=== PATIENT | male | born 1965 | race Caucasian/White ===

== ENCOUNTER 2019-01-24 10:59 | Day surgery (SDC) | payer MEDICARE ==
[~2019-01-24 10:59] MED LIST: Lactated Ringers 1,000 ML IV SCH
[2019-01-24] MEDS ORDERED: Propofol 200 MG/20 ML SDV ONE ×2 (13:15→13:48)
[2019-01-24] MEDS ORDERED: fentaNYL 100 MCG/2 ML SDV ONE (13:15)
--- NOTE | 2019-01-24 15:01 | OR ---
PREOPERATIVE DIAGNOSIS: Positive FIT stool card. The patient denies any family history of colon cancer or colon polyps. This is his first colonoscopy. POSTOPERATIVE DIAGNOSES: 1. A 5 mm polyp at 75 cm, removed with hot snare. 2. Otherwise, normal colon. PROCEDURE: Colonoscopy with polypectomy x1 using hot snare. SURGEON: Oscar Green M.D. ANESTHESIA: Monitored anesthesia care. BOWEL PREP: Fair. Particulate stool with corn present caused plugging of the scope several times. DESCRIPTION OF PROCEDURE: Jony is a 53-year-old male who was brought to the endoscopy suite after discussing risks and benefits of the procedure. Informed consent was obtained for conscious sedation and colonoscopy with or without biopsy and/or polypectomy. We also discussed possibility of missed lesions. Pre-procedure exam was unremarkable. IV, oxygen, and monitors were placed. The patient was placed in the left lateral decubitus position. Sedation was administered and a digital rectal exam was performed and unremarkable. Colonoscope was passed into the rectum and slowly advanced all the way to the cecum. Cecum was viewed and photographed. The colonoscope was slowly withdrawn and the mucosa was closed observed in a direct circumferential manner. The ascending colon was unremarkable. The transverse colon revealed a 5 mm polyp at 75 cm, removed with hot snare. Descending colon unremarkable. Sigmoid colon unremarkable. Retroflexion was performed. Rectal mucosa unremarkable. Scope was removed. The patient tolerated the procedure well. The patient was monitored until that baseline status. Discharge instructions were reviewed and the patient was discharged in good condition. COMPLICATIONS: None. TOTAL TIME: 28 minutes. ESTIMATED BLOOD LOSS: Less than 1 mL. RECOMMENDATIONS/FOLLOW-UP: We will await results of path report to determine ideal followup interval. I would like to kindly thank Von Chen for this referral. DMB: 01/24/2019 14:22:02 MODL: 01/24/2019 14:38:27 /[id number]
== END 2019-01-24 15:20 | disposition home or self-care (01) ==
LOC: VM.SDS 10:59
PROVIDERS: ATTEND Family Medicine
DX: D12.4 Benign neoplasm of descending colon (principal); F41.9 Anxiety disorder, unspecified; F32.9 Major depressive disorder, single episode, unspecified; F12.11 Cannabis abuse, in remission; E66.9 Obesity, unspecified; Z68.33 Body mass index [BMI] 33.0-33.9, adult; Z88.6 Allergy status to analgesic agent; Z98.84 Bariatric surgery status; Z87.891 Personal history of nicotine dependence; Z79.899 Other long term (current) drug therapy
CPT/HCPCS: 45385; J2704; J3010; J7120

== ENCOUNTER 2020-06-18 07:11 | Day surgery (SDC) | payer MEDICARE, MEDICAID ==
[~2020-06-18 07:11] MED LIST changes: +Sodium Chloride 0.9% 10 ML Syringe FLUSH PRN
[2020-06-18] MEDS ORDERED: fentaNYL 100 MCG/2 ML SDV ONE (07:59)
[2020-06-18] MEDS ORDERED: Propofol 200 MG/20 ML SDV ONE ×2 (07:59→09:33)
--- NOTE | 2020-06-19 08:40 | OR ---
DATE OF SURGERY: 06/18/2020. REFERRING PROVIDER: Lyudmila Pittman MD PRE-OPERATIVE DIAGNOSES: Rectal bleeding over the past week. The patient noting streaks of blood on the stool. Polyps are within the stool as well. The patient's last colonoscopy was 01/2019 and revealed 5 mm adenoma in the transverse colon. There is no family history of colon cancer. POST-OPERATIVE DIAGNOSES: 1. Two polyps removed today, but I doubt either 1 of these were the source of bleeding. a. 3 mm slightly inflamed polyp at the entry to the cecum. This did have mild bleeding after removal. b. 3 mm x 10 mm linear polyp like tissue on a haustral fold at 40 cm from the anal verge. This was removed using hot snare x2 passes. This was a subtle appearing polyp like tissue and may actually return normal. 2. Normal-appearing distal ileum. PROCEDURE: Colonoscopy with polypectomy x2 (1 using cold forceps and 1 using hot snare x2 passes). SURGEON: Oscar Green M.D. ANESTHESIA: Monitored anesthesia care. BOWEL PREP: Fair and did require moderate amount of irrigation and suctioning. Jony is a 55-year-old male who was brought to the endoscopy suite after discussing risks and benefits of the procedure. Informed consent was obtained for conscious sedation and colonoscopy with or without biopsy and/or polypectomy. We also discussed possibility of missed lesions. Pre-procedure exam was unremarkable. IV, oxygen, and monitors were placed. The patient was placed in the left lateral decubitus position. Sedation was administered and a digital rectal exam was performed and unremarkable. I did not notice any external hemorrhoids nor any anal fissures. Colonoscope was passed into the rectum and slowly advanced all the way to the cecum. Cecum was viewed and photographed. Ileocecal valve was intubated and distal ileum was normal in appearance. The colonoscope was slowly withdrawn and the mucosa was closed observed in a direct circumferential manner. The ascending colon revealed 3 mm polyp at the entry to the cecum. This did appear to be mildly irritated or inflamed and did bleed a little bit after removal with cold forceps. The transverse colon was unremarkable. The descending colon revealed polypoid-like tissue on a haustral fold at 40 cm from the anal verge. This was about 3 mm x 10 mm in dimension and was subtle in appearance. This was removed using hot snare x2 passes. The sigmoid colon was unremarkable. Retroflexion was performed and rectal mucosa was unremarkable. Scope was removed. The patient tolerated the procedure well. The patient was monitored until that baseline status. Discharge instructions were reviewed and the patient was discharged in good condition. COMPLICATIONS: None. TOTAL TIME: 29 minutes. ESTIMATED BLOOD LOSS: About 1 mL. RECOMMENDATIONS/FOLLOW-UP: We will await results of path report to determine ideal followup interval. If the patient continues to have ongoing rectal bleeding, may consider additional imaging of the small bowel with either CT scan or PillCam study. May also benefit from upper endoscopy evaluation. These could be coordinated through Gastroenterology as well. I would like to kindly thank Dr. Pittman for this referral. DMB: 06/18/2020 11:35:09 MODL: 06/18/2020 14:03:25 /[id number]
== END 2020-06-18 11:25 | disposition home or self-care (01) ==
LOC: VM.SDS 07:11
PROVIDERS: ATTEND Family Medicine
DX: D12.0 Benign neoplasm of cecum (principal); F41.9 Anxiety disorder, unspecified; E66.9 Obesity, unspecified; Z98.890 Other specified postprocedural states; Z87.891 Personal history of nicotine dependence; Z01.812 Encounter for preprocedural laboratory examination; Z20.828 Contact with and (suspected) exposure to other viral communicable diseases; Z79.899 Other long term (current) drug therapy; Z88.8 Allergy status to other drugs, medicaments and biological substances; Z68.29 Body mass index [BMI] 29.0-29.9, adult
CPT/HCPCS: 00811; 88305; J2704; J3010; J7120; U0002

== ENCOUNTER 2022-09-05 10:45 | Inpatient (IN) | payer MEDICARE, MEDICAID ==
[2022-09-05] MEDS ORDERED: Piperacillin/Tazobactam 3.375 GM in Sodium Chloride 0.9% 100 ML IV ONE (11:46)
[2022-09-05] MEDS ORDERED: VANCOmycin 2 GM/400 ML 2 GM in Premix Bag 1 BAG IV ONE (11:49)
[2022-09-05] MEDS ORDERED: Cefepime 2 GM in Sodium Chloride 0.9% 100 ML IV ONE (12:01)
[2022-09-05 12:22] LABS: PTT,PARTIAL THROMBOPLSTIN TIME 26.7 SEC (20.5-30.9)
[2022-09-05 12:24] LABS: ANION GAP 12.1 mmol/L (5-15)
[2022-09-05] MEDS ORDERED: Naloxone 0.4 MG/ML SDV IM PRN (19:01)
[2022-09-05] MEDS ORDERED: Magnesium Hydroxide 400 MG/5 ML Susp 30 ML Cup PO PRN (19:22)
[2022-09-05] MEDS: HYDROmorphone 1 MG/ML Syringe IVPUSH PRN (19:58)
[2022-09-05] MEDS: busPIRone 15 MG Tab PO SCH (20:12)
[2022-09-05] MEDS: Gabapentin 300 MG Cap PO SCH (20:14)
[2022-09-05] MEDS: Ferrous Sulfate 325 MG Tab PO SCH (20:15)
[2022-09-05] MEDS: Melatonin 3 MG Tab PO SCH (20:15)
[2022-09-05] MEDS ORDERED: Amitriptyline 25 MG Tab PO ONE (22:30)
[2022-09-05] MEDS: HYDROmorphone 2 MG Tab PO SCH ×2 (23:10→23:18)
[2022-09-06] MEDS ORDERED: Cefepime 2 GM in Sodium Chloride 0.9% 100 ML IV SCH (01:00)
[2022-09-06] MEDS: HYDROmorphone 2 MG Tab PO SCH ×6 (05:58→20:47)
[2022-09-06] MEDS: Gabapentin 300 MG Cap PO SCH ×2 (08:20→20:52)
[2022-09-06] MEDS: Ferrous Sulfate 325 MG Tab PO SCH ×2 (08:20→20:49)
[2022-09-06] MEDS: Calcium Citrate/Vitamin D3 315 MG-250 Unit Tab PO SCH (08:20)
[2022-09-06] MEDS: QUEtiapine 100 MG Tab PO SCH (08:21)
[2022-09-06] MEDS: Polyethylene Glycol 3350 Powder 17 GM Packet PO SCH (08:22)
[2022-09-06] MEDS ORDERED: Calcium Carbonate 750 MG Tab.Chew PO PRN (08:37)
[2022-09-06] MEDS: VANCOmycin 1.5 GM/300 ML 300 ML IV SCH ×2 (09:25→20:42)
[2022-09-06] MEDS: busPIRone 15 MG Tab PO SCH ×2 (09:36→20:49)
[2022-09-06] MEDS ORDERED: HYDROmorphone 2 MG Tab PO SCH (10:00)
[2022-09-06] MEDS: Cefepime 2 GM in Sodium Chloride 0.9% 100 ML IV SCH ×2 (11:09→18:30)
[2022-09-06] MEDS: HYDROmorphone 1 MG/ML Syringe IVPUSH PRN (15:40)
[2022-09-06] MEDS: Enoxaparin 40 MG/0.4 ML Syringe SUBCUT SCH (17:28)
[2022-09-06] MEDS: Melatonin 3 MG Tab PO SCH (20:49)
[2022-09-06] MEDS: Amitriptyline 25 MG Tab PO SCH (20:51)
[2022-09-07] MEDS: HYDROmorphone 2 MG Tab PO SCH ×6 (01:24→20:04)
[2022-09-07] MEDS: Cefepime 2 GM in Sodium Chloride 0.9% 100 ML IV SCH ×2 (01:32→11:03)
[2022-09-07] MEDS: VANCOmycin 1.5 GM/300 ML 300 ML IV SCH (07:55)
[2022-09-07] MEDS: QUEtiapine 100 MG Tab PO SCH (08:12)
[2022-09-07] MEDS: busPIRone 15 MG Tab PO SCH ×2 (08:14→20:03)
[2022-09-07] MEDS: Calcium Citrate/Vitamin D3 315 MG-250 Unit Tab PO SCH (08:14)
[2022-09-07] MEDS: Ferrous Sulfate 325 MG Tab PO SCH ×2 (08:15→20:03)
[2022-09-07] MEDS: Gabapentin 300 MG Cap PO SCH ×2 (08:15→20:02)
[2022-09-07] MEDS: Polyethylene Glycol 3350 Powder 17 GM Packet PO SCH (08:15)
[2022-09-07] MEDS ORDERED: Acetaminophen 325 MG Tab PO PRN (08:36)
[2022-09-07] MEDS ORDERED: hydrOXYzine HCl 25 MG Tab PO PRN (08:37)
[2022-09-07] MEDS: HYDROmorphone 1 MG/ML Syringe IVPUSH PRN (10:57)
[2022-09-07] MEDS: Meropenem 1 GM in Sodium Chloride 0.9% 100 ML IV SCH ×2 (13:29→20:01)
[2022-09-07] MEDS ORDERED: Sodium Chloride 0.9% 10 ML Syringe IV PRN (16:00)
[2022-09-07] MEDS: Enoxaparin 40 MG/0.4 ML Syringe SUBCUT SCH (16:50)
[2022-09-07] MEDS: Melatonin 3 MG Tab PO SCH (20:03)
[2022-09-07] MEDS: Amitriptyline 25 MG Tab PO SCH (20:04)
[2022-09-08] MEDS: HYDROmorphone 2 MG Tab PO SCH ×3 (00:12→08:46)
[2022-09-08] MEDS: Meropenem 1 GM in Sodium Chloride 0.9% 100 ML IV SCH (04:56)
[2022-09-08] MEDS: busPIRone 15 MG Tab PO SCH (08:18)
[2022-09-08] MEDS: Ferrous Sulfate 325 MG Tab PO SCH (08:18)
[2022-09-08] MEDS: Calcium Citrate/Vitamin D3 315 MG-250 Unit Tab PO SCH (08:18)
[2022-09-08] MEDS: Polyethylene Glycol 3350 Powder 17 GM Packet PO SCH (08:19)
[2022-09-08] MEDS: QUEtiapine 100 MG Tab PO SCH (08:19)
[2022-09-08] MEDS: Gabapentin 300 MG Cap PO SCH (08:19)
[2022-09-08] MEDS ORDERED: HYDROmorphone 2 MG Tab ONE (11:24)
[2022-09-08] MEDS ORDERED: Meropenem 1 GM SDV IVPUSH ONE (11:30)
[2022-09-08] MEDS: HYDROmorphone 1 MG/ML Syringe IVPUSH PRN (11:34)
== END 2022-09-08 12:05 | disposition swing bed (61) | DRG 565 ==
LOC: VM.ED 10:45 → VM.MS 13:08
PROVIDERS: ADMIT Nurse Practitioner Family; ATTEND Internal Medicine
DX: T87.44 Infection of amputation stump, left lower extremity (principal); E44.0 Moderate protein-calorie malnutrition; B96.5 Pseudomonas (aeruginosa) (mallei) (pseudomallei) as the cause of diseases classified elsewhere; I10 Essential (primary) hypertension; B95.61 Methicillin susceptible Staphylococcus aureus infection as the cause of diseases classified elsewhere; E66.01 Morbid (severe) obesity due to excess calories; E78.00 Pure hypercholesterolemia, unspecified; K59.09 Other constipation; Z96.652 Presence of left artificial knee joint; M19.90 Unspecified osteoarthritis, unspecified site; F41.9 Anxiety disorder, unspecified; F32.9 Major depressive disorder, single episode, unspecified; E66.9 Obesity, unspecified; G47.00 Insomnia, unspecified; Y83.8 Other surgical procedures as the cause of abnormal reaction of the patient, or of later complication, without mention of misadventure at the time of the procedure; Z79.899 Other long term (current) drug therapy; G47.33 Obstructive sleep apnea (adult) (pediatric); G89.4 Chronic pain syndrome; Z79.891 Long term (current) use of opiate analgesic; Z88.5 Allergy status to narcotic agent; Z89.612 Acquired absence of left leg above knee; Z98.84 Bariatric surgery status; Z87.820 Personal history of traumatic brain injury; Z86.14 Personal history of Methicillin resistant Staphylococcus aureus infection; Z68.38 Body mass index [BMI] 38.0-38.9, adult
CPT/HCPCS: 36415; 80053; 80069; 80202; 83605; 83735; 84100; 84145; 85025; 85610; 85730; 86140; 87040; 95851-GO; 97110-GP; 97116-GP; 97162-GP; 97165-GO; 97530-GO; 97535-GO; 99284; A9270-GY; J0692; J1170; J1650; J2185; J3370

== ENCOUNTER 2022-10-19 15:04 | Emergency (ER) | payer MEDICARE, MEDICAID | END 2022-10-19 16:30 | LOC: VM.ED 15:04 | DX: S70.01XA Contusion of right hip, initial encounter (principal); E78.00 Pure hypercholesterolemia, unspecified; I10 Essential (primary) hypertension; E66.9 Obesity, unspecified; Z68.39 Body mass index [BMI] 39.0-39.9, adult; Z88.8 Allergy status to other drugs, medicaments and biological substances; W19.XXXA Unspecified fall, initial encounter | CPT/HCPCS: 99283; 99284 ==

== ENCOUNTER 2023-06-10 09:08 | Emergency (ER) | payer MEDICARE, MEDICAID ==
[2023-06-10] MEDS ORDERED: Sodium Chloride 0.9% 10 ML Syringe FLUSH PRN (09:20)
[2023-06-10] MEDS ORDERED: Ondansetron 4 MG/2 ML SDV IVPUSH ONE (09:22)
[2023-06-10] MEDS ORDERED: Lactated Ringers 1,000 ML IV ONE ×2 (09:22→09:40)
[2023-06-10] MEDS ORDERED: HYDROmorphone 0.5 MG/0.5 ML Syringe IVPUSH ONE (09:23)
[2023-06-10] MEDS ORDERED: Sodium Chloride 0.9% 1,000 ML IV ONE (09:36)
[2023-06-10 09:43] LABS: BASOPHILS PERCENT AUTO 0.2 % (0.2-1.2); EOSINOPHILS ABSOLUTE AUTO 0.1 x10^3/uL (0.0-0.5); EOSINOPHILS PERCENT AUTO 1.2 % (0.0-4.0); HEMATOCRIT 43.7 % (40.0-52.0); HEMOGLOBIN 14.7 g/dL (14.0-18.0); IMMATURE GRAN ABSOLUTE AUTO 0.01 x10^3/uL (0.00-0.07); LYMPHOCYTES ABSOLUTE AUTO 1.2 x10^3/uL (1.0-4.8); LYMPHOCYTES PERCENT AUTO 14.4 % (25.0-50.0); MEAN CORPUSCULAR HEMOGLOBIN 29.1 pg (26.0-32.0); MEAN CORPUSCULAR HGB CONC 33.6 g/dL (32.0-36.0); MEAN CORPUSCULAR VOLUME 86.5 fL (78.0-93.0); MONOCYTES ABSOLUTE AUTO 0.3 x10^3/uL (0.0-0.8); MONOCYTES PERCENT AUTO 3.9 % (2.0-11.0); NEUTROPHILS ABSOLUTE AUTO 6.8 x10^3/uL (1.8-7.7); NEUTROPHILS PERCENT AUTO 80.2 % (50.0-80.0); PLATELET COUNT,PLT 291 x10^3/uL (130-400); RED BLOOD CELL COUNT 5.05 x10^6/uL (4.5-6.0); WHITE BLOOD CELL COUNT,WBC 8.4 x10^3/uL (4.0-10.0)
[2023-06-10 09:55] LABS: PROTHROMBIN TIME 10.4 SEC (9.5-12.2); PTT,PARTIAL THROMBOPLSTIN TIME 27.5 SEC (23.6-33.6)
[2023-06-10 09:58] LABS: A/G RATIO 1.03; ALANINE AMINOTRANSFERASE,ALT 31 U/L (16-63); ALBUMIN 3.6 g/dL (3.4-5.0); ALKALINE PHOSPHATASE 106 U/L (46-116); ASPARTATE AMNIOTRANSFERASE,AST 27 U/L (15-37); BILIRUBIN TOTAL 0.8 mg/dL (0.2-1.0); BLOOD UREA NITROGEN,BUN 6 mg/dL (7-18); C-REACTIVE PROTEIN 1.48 mg/dL (<=0.30); CALCIUM 9.2 mg/dL (8.5-10.1); CARBON DIOXIDE,CO2 29 mmol/L (21-32); CHLORIDE,CL 104 mmol/L (98-107); CREATININE 0.8 mg/dL (0.70-1.30); GLUCOSE RANDOM 118 mg/dL (70-99); LIPASE 17 U/L (19-71); MAGNESIUM 1.8 mg/dL (1.8-2.4); POTASSIUM,K 3.5 mmol/L (3.5-5.1); PROTEIN TOTAL,TP 7.1 g/dL (6.4-8.2); SODIUM,NA 139 mmol/L (136-145)
[2023-06-10 09:59] LABS: ANION GAP 9.5 mmol/L (5-15); ESTIMATED GFR 104 mL/min (>=60)
[2023-06-10 10:00] LABS: LACTIC ACID 1.2 mmol/L (0.4-2.0)
[2023-06-10 10:23] LABS: CORONAVIRUS COVID-19 NAA NEGATIVE (NEGATIVE); INFLUENZA A NAA NEGATIVE (NEGATIVE); INFLUENZA B NAA NEGATIVE (NEGATIVE); RESPIRATORY SYNCYTIAL VIR NAA NEGATIVE (NEGATIVE)
[2023-06-10] MEDS ORDERED: Iopamidol 612 MG/ML 100 ML Bottle IVPUSH ONE (10:28)
== END 2023-06-10 11:35 | disposition home or self-care (01) ==
LOC: VM.ED 09:08
DX: K52.9 Noninfective gastroenteritis and colitis, unspecified (principal); E78.00 Pure hypercholesterolemia, unspecified; I10 Essential (primary) hypertension; E66.9 Obesity, unspecified; Z79.899 Other long term (current) drug therapy; Z88.6 Allergy status to analgesic agent; Z20.822 Contact with and (suspected) exposure to COVID-19; Z68.41 Body mass index [BMI] 40.0-44.9, adult
CPT/HCPCS: 0241U; 36415; 74177; 80053; 82140; 83605; 83690; 83735; 85025; 85610; 85730; 86140; 87040; 96361; 96374; 96375; 99284; 99284-25; J1170; J2405; J7120; Q9967

== ENCOUNTER 2023-06-11 09:52 | Emergency (ER) | payer MEDICARE, MEDICAID ==
[2023-06-11] MEDS ORDERED: Sodium Chloride 0.9% 1,000 ML IV ONE (10:12)
[2023-06-11] MEDS ORDERED: Ondansetron 4 MG/2 ML SDV IVPUSH ONE (10:12)
[2023-06-11] MEDS ORDERED: Naloxone 0.4 MG/ML SDV IVPUSH PRN (10:15)
[2023-06-11] MEDS ORDERED: HYDROmorphone 1 MG/ML Syringe IVPUSH ONE (10:15)
[2023-06-11 10:20] LABS: BASOPHILS PERCENT AUTO 0.4 % (0.2-1.2); EOSINOPHILS ABSOLUTE AUTO 0.1 x10^3/uL (0.0-0.5); EOSINOPHILS PERCENT AUTO 1.2 % (0.0-4.0); HEMATOCRIT 44.7 % (40.0-52.0); HEMOGLOBIN 15.1 g/dL (14.0-18.0); IMMATURE GRAN ABSOLUTE AUTO 0.03 x10^3/uL (0.00-0.07); LYMPHOCYTES ABSOLUTE AUTO 1.4 x10^3/uL (1.0-4.8); LYMPHOCYTES PERCENT AUTO 17.9 % (25.0-50.0); MEAN CORPUSCULAR HGB CONC 33.8 g/dL (32.0-36.0); MEAN CORPUSCULAR VOLUME 85.8 fL (78.0-93.0); MONOCYTES ABSOLUTE AUTO 0.3 x10^3/uL (0.0-0.8); NEUTROPHILS ABSOLUTE AUTO 5.8 x10^3/uL (1.8-7.7); NEUTROPHILS PERCENT AUTO 76.1 % (50.0-80.0); PLATELET COUNT,PLT 278 x10^3/uL (130-400); RED BLOOD CELL COUNT 5.21 x10^6/uL (4.5-6.0); WHITE BLOOD CELL COUNT,WBC 7.7 x10^3/uL (4.0-10.0)
[2023-06-11 10:53] LABS: A/G RATIO 1.11; ALANINE AMINOTRANSFERASE,ALT 31 U/L (16-63); ALBUMIN 3.9 g/dL (3.4-5.0); ALKALINE PHOSPHATASE 103 U/L (46-116); ANION GAP 13.6 mmol/L (5-15); ASPARTATE AMNIOTRANSFERASE,AST 26 U/L (15-37); BLOOD UREA NITROGEN,BUN 7 mg/dL (7-18); C-REACTIVE PROTEIN 0.49 mg/dL (<=0.30); CALCIUM 9.2 mg/dL (8.5-10.1); CARBON DIOXIDE,CO2 27 mmol/L (21-32); CHLORIDE,CL 102 mmol/L (98-107); CREATININE 0.8 mg/dL (0.70-1.30); ESTIMATED GFR 104 mL/min (>=60); GLUCOSE RANDOM 104 mg/dL (70-99); LIPASE 28 U/L (19-71); MAGNESIUM 1.7 mg/dL (1.8-2.4); POTASSIUM,K 3.6 mmol/L (3.5-5.1); PROTEIN TOTAL,TP 7.4 g/dL (6.4-8.2); SODIUM,NA 139 mmol/L (136-145)
[2023-06-11 11:50] LABS: APPEARANCE,URINE SLIGHTLY CLOUDY (CLEAR); BILIRUBIN,URINE SMALL (NEGATIVE); COLOR,URINE DARK YELLOW (YELLOW); GLUCOSE,URINE NEGATIVE (NEGATIVE); KETONES,URINE 80 mg/dL (NEGATIVE); LEUKOCYTE ESTERASE,URINE NEGATIVE (NEGATIVE); NITRITE,URINE NEGATIVE (NEGATIVE); OCCULT BLOOD,URINE TRACE-INTACT (NEGATIVE); PROTEIN,URINE 30 mg/dL (NEGATIVE); UROBILINOGEN,URINE >=8.0 EU/dL (0.2)
[2023-06-11 11:56] LABS: AMORPHOUS SEDIMENT,URINE OCCASIONAL; BACTERIA,URINE NOT SEEN /HPF (NOT SEEN); MUCUS,URINE FEW /LPF (NOT SEEN); RBC,URINE 0-5 /HPF (NOT SEEN); SQUAMOUS EPITHELIAL CELLS,UR RARE /HPF (NOT SEEN); WBC,URINE 0-5 /HPF (NOT SEEN)
== END 2023-06-11 12:15 | disposition home or self-care (01) ==
LOC: VM.ED 09:52
DX: K52.9 Noninfective gastroenteritis and colitis, unspecified (principal); I10 Essential (primary) hypertension; E66.9 Obesity, unspecified; Z87.891 Personal history of nicotine dependence; Z79.899 Other long term (current) drug therapy; Z88.6 Allergy status to analgesic agent; Z68.41 Body mass index [BMI] 40.0-44.9, adult
CPT/HCPCS: 80053; 81001; 83605; 83690; 83735; 84484; 85025; 86140; 93005; 93010; 96361; 96374; 96375; 99284; 99284-25; J1170; J2405; J7030

== ENCOUNTER 2024-07-08 20:39 | Emergency (ER) | payer MEDICARE, MEDICAID ==
[2024-07-08 21:27] LABS: BASOPHILS PERCENT AUTO 0.2 % (0.2-1.2); EOSINOPHILS ABSOLUTE AUTO 0.2 x10^3/uL (0.0-0.5); EOSINOPHILS PERCENT AUTO 1.9 % (0.0-4.0); HEMATOCRIT 41.9 % (40.0-52.0); HEMOGLOBIN 14.2 g/dL (14.0-18.0); IMMATURE GRAN ABSOLUTE AUTO 0.01 x10^3/uL (0.00-0.07); LYMPHOCYTES ABSOLUTE AUTO 0.9 x10^3/uL (1.0-4.8); LYMPHOCYTES PERCENT AUTO 10.7 % (25.0-50.0); MEAN CORPUSCULAR HGB CONC 33.9 g/dL (32.0-36.0); MEAN CORPUSCULAR VOLUME 88.6 fL (78.0-93.0); MONOCYTES ABSOLUTE AUTO 0.3 x10^3/uL (0.0-0.8); MONOCYTES PERCENT AUTO 3.7 % (2.0-11.0); NEUTROPHILS ABSOLUTE AUTO 7.1 x10^3/uL (1.8-7.7); NEUTROPHILS PERCENT AUTO 83.4 % (50.0-80.0); PLATELET COUNT,PLT 268 x10^3/uL (130-400); RED BLOOD CELL COUNT 4.73 x10^6/uL (4.5-6.0); WHITE BLOOD CELL COUNT,WBC 8.6 x10^3/uL (4.0-10.0)
[2024-07-08 21:54] LABS: A/G RATIO 0.97; ALBUMIN 3.7 g/dL (3.4-5.0); BILIRUBIN TOTAL 0.7 mg/dL (0.2-1.0); CREATININE 0.8 mg/dL (0.70-1.30); EST CRCL DRUG DOSING (CG) 105.19 mL/min; POTASSIUM,K 3.9 mmol/L (3.5-5.1); PROTEIN TOTAL,TP 7.5 g/dL (6.4-8.2)
[2024-07-08 21:56] LABS: ANION GAP 16.9 mmol/L (5-15)
[2024-07-08] MEDS: Ondansetron 4 MG Tab.DIS PO ONE (21:57)
[2024-07-08] MEDS: Take Home: Ondansetron 4 MG Tab.DIS, 5 Tab Pack PO ONE (22:28)
== END 2024-07-08 22:38 | disposition home or self-care (01) ==
LOC: VM.ED 20:39
DX: R11.2 Nausea with vomiting, unspecified (principal); I10 Essential (primary) hypertension; E66.9 Obesity, unspecified; Z68.36 Body mass index [BMI] 36.0-36.9, adult; Z96.659 Presence of unspecified artificial knee joint; Z88.6 Allergy status to analgesic agent; Z79.2 Long term (current) use of antibiotics; Z79.899 Other long term (current) drug therapy
CPT/HCPCS: 36415; 71045; 80053; 83605; 84484; 85025; 87428; 93005; 99284; A9270; Q0162; 93010

== ENCOUNTER 2024-08-07 11:22 | Emergency (ER) | payer MEDICARE, MEDICAID ==
[2024-08-07] MEDS: Ondansetron 4 MG Tab.DIS PO ONE (12:25)
== END 2024-08-07 12:35 | disposition home or self-care (01) ==
LOC: SUPCPDRO 11:22 → VM.ED 11:22
DX: B34.9 Viral infection, unspecified (principal); I10 Essential (primary) hypertension; E78.00 Pure hypercholesterolemia, unspecified; E66.9 Obesity, unspecified; Z88.8 Allergy status to other drugs, medicaments and biological substances; Z79.899 Other long term (current) drug therapy; Z68.34 Body mass index [BMI] 34.0-34.9, adult
CPT/HCPCS: 87428; 99285; A9270

== ENCOUNTER 2025-07-26 11:02 | Emergency (ER) | payer MEDICARE, MEDICAID ==
[2025-07-26 11:52] LABS: BASOPHILS ABSOLUTE AUTO 0.0 x10^3/uL (0.0-0.2); BASOPHILS PERCENT AUTO 0.5 % (0.2-1.2); EOSINOPHILS ABSOLUTE AUTO 0.1 x10^3/uL (0.0-0.5); EOSINOPHILS PERCENT AUTO 2.3 % (0.0-4.0); IMMATURE GRAN ABSOLUTE AUTO 0.01 x10^3/uL (0.00-0.07); IMMATURE GRAN PERCENT AUTO 0.20 % (0.00-0.43); LYMPHOCYTES ABSOLUTE AUTO 1.4 x10^3/uL (1.0-4.8); LYMPHOCYTES PERCENT AUTO 23.3 % (25.0-50.0); MONOCYTES ABSOLUTE AUTO 0.5 x10^3/uL (0.0-0.8); MONOCYTES PERCENT AUTO 8.2 % (2.0-11.0); NEUTROPHILS ABSOLUTE AUTO 4.0 x10^3/uL (1.8-7.7); NEUTROPHILS PERCENT AUTO 65.5 % (50.0-80.0); PLATELET COUNT,PLT 262 x10^3/uL (130-400); RED BLOOD CELL COUNT 5.46 x10^6/uL (4.5-6.0); WHITE BLOOD CELL COUNT,WBC 6.1 x10^3/uL (4.0-10.0)
[2025-07-26] MEDS ORDERED: Sodium Chloride 0.9% 10 ML Syringe FLUSH PRN (11:54)
[2025-07-26] MEDS: Ondansetron 4 MG/2 ML SDV IVPUSH ONE (11:58)
[2025-07-26 12:14] LABS: A/G RATIO 1.05; ALANINE AMINOTRANSFERASE,ALT 23 U/L (16-63); ASPARTATE AMNIOTRANSFERASE,AST 20 U/L (15-37); BILIRUBIN TOTAL 0.7 mg/dL (0.2-1.0); BLOOD UREA NITROGEN,BUN 6 mg/dL (7-18); CARBON DIOXIDE,CO2 29 mmol/L (21-32); CHLORIDE,CL 101 mmol/L (98-107); CREATININE 0.7 mg/dL (0.70-1.30); GLUCOSE RANDOM 114 mg/dL (70-99); POTASSIUM,K 4.0 mmol/L (3.5-5.1); PROTEIN TOTAL,TP 7.6 g/dL (6.4-8.2); SODIUM,NA 139 mmol/L (136-145)
[2025-07-26 12:15] LABS: ESTIMATED GFR 107 mL/min (>=60)
[2025-07-26] MEDS: Iopamidol 612 MG/ML 100 ML Bottle IVPUSH ONE (12:33)
== END 2025-07-26 14:40 | disposition short-term general hospital (02) ==
LOC: VM.ED 11:02
DX: K35.80 Unspecified acute appendicitis (principal); I10 Essential (primary) hypertension; E78.00 Pure hypercholesterolemia, unspecified; Z88.8 Allergy status to other drugs, medicaments and biological substances; Z79.899 Other long term (current) drug therapy
CPT/HCPCS: 74177; 80053; 83690; 83735; 85025; 96374; 96375; 99284; 99285; J1171; J2405; Q9967

== ENCOUNTER 2025-08-14 09:35 | Emergency (ER) | payer MEDICARE, MEDICAID ==
[2025-08-14] MEDS ORDERED: Sodium Chloride 0.9% 10 ML Syringe FLUSH PRN (09:43)
[2025-08-14 09:59] LABS: BASOPHILS ABSOLUTE AUTO 0.0 x10^3/uL (0.0-0.2); BASOPHILS PERCENT AUTO 0.4 % (0.2-1.2); EOSINOPHILS ABSOLUTE AUTO 0.1 x10^3/uL (0.0-0.5); EOSINOPHILS PERCENT AUTO 1.3 % (0.0-4.0); IMMATURE GRAN ABSOLUTE AUTO 0.00 x10^3/uL (0.00-0.07); IMMATURE GRAN PERCENT AUTO 0.00 % (0.00-0.43); LYMPHOCYTES ABSOLUTE AUTO 1.1 x10^3/uL (1.0-4.8); LYMPHOCYTES PERCENT AUTO 15.6 % (25.0-50.0); MONOCYTES ABSOLUTE AUTO 0.5 x10^3/uL (0.0-0.8); MONOCYTES PERCENT AUTO 6.6 % (2.0-11.0); NEUTROPHILS ABSOLUTE AUTO 5.4 x10^3/uL (1.8-7.7); NEUTROPHILS PERCENT AUTO 76.1 % (50.0-80.0); PLATELET COUNT,PLT 357 x10^3/uL (130-400); RED BLOOD CELL COUNT 5.07 x10^6/uL (4.5-6.0); WHITE BLOOD CELL COUNT,WBC 7.1 x10^3/uL (4.0-10.0)
[2025-08-14 10:22] LABS: A/G RATIO 0.95; ALANINE AMINOTRANSFERASE,ALT 34.0 U/L (16-63); ASPARTATE AMNIOTRANSFERASE,AST 27.0 U/L (15-37); BILIRUBIN TOTAL 0.9 mg/dL (0.2-1.0); BLOOD UREA NITROGEN,BUN 9.0 mg/dL (7-18); CARBON DIOXIDE,CO2 25.0 mmol/L (21-32); CHLORIDE,CL 102.0 mmol/L (98-107); CREATININE 0.7 mg/dL (0.70-1.30); EST CRCL DRUG DOSING (CG) 118.77 mL/min; GLUCOSE RANDOM 112.0 mg/dL (70-99); POTASSIUM,K 3.6 mmol/L (3.5-5.1); PROTEIN TOTAL,TP 7.8 g/dL (6.4-8.2); SODIUM,NA 140.0 mmol/L (136-145)
[2025-08-14 10:24] LABS: ESTIMATED GFR 107.0 mL/min (>=60)
[2025-08-14] MEDS: Iopamidol 612 MG/ML 100 ML Bottle IVPUSH ONE (10:47)
[2025-08-14] MEDS: Ondansetron 4 MG/2 ML SDV IVPUSH ONE (11:06)
[2025-08-14] MEDS: Ketorolac 30 MG/ML SDV IVPUSH ONE (11:10)
== END 2025-08-14 12:20 | disposition home or self-care (01) ==
LOC: VM.ED 09:35
DX: R11.2 Nausea with vomiting, unspecified (principal); I10 Essential (primary) hypertension; E78.00 Pure hypercholesterolemia, unspecified; Z88.8 Allergy status to other drugs, medicaments and biological substances; Z79.899 Other long term (current) drug therapy
CPT/HCPCS: 36415; 74177; 80053; 83605; 85025; 87040; 96374; 96375; 99284; 99284-25; J1885; J2405; Q9967

== ENCOUNTER 2025-08-17 07:25 | Emergency (ER) | payer MEDICARE, MEDICAID ==
[2025-08-17 08:19] LABS: BASOPHILS ABSOLUTE AUTO 0.0 x10^3/uL (0.0-0.2); BASOPHILS PERCENT AUTO 0.4 % (0.2-1.2); EOSINOPHILS ABSOLUTE AUTO 0.1 x10^3/uL (0.0-0.5); EOSINOPHILS PERCENT AUTO 1.5 % (0.0-4.0); IMMATURE GRAN ABSOLUTE AUTO 0.01 x10^3/uL (0.00-0.07); IMMATURE GRAN PERCENT AUTO 0.10 % (0.00-0.43); LYMPHOCYTES ABSOLUTE AUTO 1.7 x10^3/uL (1.0-4.8); LYMPHOCYTES PERCENT AUTO 24.4 % (25.0-50.0); MONOCYTES ABSOLUTE AUTO 0.6 x10^3/uL (0.0-0.8); MONOCYTES PERCENT AUTO 8.1 % (2.0-11.0); NEUTROPHILS ABSOLUTE AUTO 4.5 x10^3/uL (1.8-7.7); NEUTROPHILS PERCENT AUTO 65.5 % (50.0-80.0); PLATELET COUNT,PLT 326 x10^3/uL (130-400); RED BLOOD CELL COUNT 5.81 x10^6/uL (4.5-6.0); WHITE BLOOD CELL COUNT,WBC 6.8 x10^3/uL (4.0-10.0)
[2025-08-17 08:23] LABS: A/G RATIO 0.95; ALANINE AMINOTRANSFERASE,ALT 49.0 U/L (16-63); ASPARTATE AMNIOTRANSFERASE,AST 38.0 U/L (15-37); BILIRUBIN TOTAL 1.5 mg/dL (0.2-1.0); BLOOD UREA NITROGEN,BUN 13.0 mg/dL (7-18); CARBON DIOXIDE,CO2 24.0 mmol/L (21-32); CHLORIDE,CL 97.0 mmol/L (98-107); CREATININE 0.8 mg/dL (0.70-1.30); EST CRCL DRUG DOSING (CG) 103.92 mL/min; GLUCOSE RANDOM 96.0 mg/dL (70-99); POTASSIUM,K 3.5 mmol/L (3.5-5.1); PROTEIN TOTAL,TP 8.4 g/dL (6.4-8.2); SODIUM,NA 138.0 mmol/L (136-145)
[2025-08-17 08:24] LABS: ESTIMATED GFR 103.0 mL/min (>=60)
[2025-08-17] MEDS: Iopamidol 612 MG/ML 100 ML Bottle IVPUSH ONE (09:13)
[2025-08-17 10:36] LABS: APPEARANCE,URINE CLEAR (CLEAR); GLUCOSE,URINE NEGATIVE (NEGATIVE); OCCULT BLOOD,URINE NEGATIVE (NEGATIVE)
[2025-08-17] MEDS: Take Home: Ondansetron 4 MG Tab.DIS, 5 Tab Pack PO ONE (10:46)
== END 2025-08-17 11:10 | disposition home or self-care (01) ==
LOC: VM.ED 07:25
DX: R10.31 Right lower quadrant pain (principal); E86.0 Dehydration; F12.10 Cannabis abuse, uncomplicated; I10 Essential (primary) hypertension; E78.00 Pure hypercholesterolemia, unspecified; E66.9 Obesity, unspecified; Z79.899 Other long term (current) drug therapy; Z88.6 Allergy status to analgesic agent; Z88.8 Allergy status to other drugs, medicaments and biological substances; Z68.34 Body mass index [BMI] 34.0-34.9, adult
CPT/HCPCS: 74177; 80053; 80307; 81003; 83605; 83690; 85025; 96361; 96374; 99284; 99284-25; J1790; J7030; Q0162; Q9967